=== PATIENT | female | born 1955 | race Caucasian/White ===

== ENCOUNTER 2018-03-11 13:18 | Emergency (ER) | payer MEDICAID, SELFPAY ==
[2018-03-11 13:22] VITALS: BP 142/80; PULSE 91; RESP 16; TEMP 36.7; O2SAT 97
--- NOTE | 2018-03-11 13:24 | ED.GENADUL_ITS ---
Discharge Plan Disposition Patient Disposition: HOME Condition: Stable Discharge Details Chief Complaint: DentalOral Clinical Impression: Odontalgia, Dental caries Primary Care Provider: Rebecca Suresh ED Provider: Josephine Glover Home Meds and New Rx's Prescriptions: New penicillin V potassium 500 mg tablet 500 mg PO QID 7 Days Qty: 28 RF: 0 Continue aspirin 81 mg Tablet,Chewable 81 mg PO DAILY RF: 0 Discharge Instructions Instructions: Dental Caries (ED), Toothache (ED) Additional Instructions: Alternate Tylenol and Motrin as needed and directed for pain. Take the antibiotics until finished. Call your dentist on Tuesday to schedule follow-up appointment for reevaluation. Return immediately to the emergency department any worsening or new concerning symptoms. Discharge Data Discharge Date/Time-TO BE ENTERED AT DEPARTURE: 03/11/18 13:58 Discharge Physician: Josephine Glover Medical Decision Making 62-year-old female with right upper jaw pain and dental pain with right-sided facial swelling since last night. Some improvement in facial swelling this morning. BP mildly hypertensive, afebrile. Pt appears nontoxic. Poor dentition, dental caries and multiple missing teeth throughout. Right upper jaw tooth slightly loose with mild edema, erythema and tenderness to palpation. Noted. No trismus , submandibular swelling or evidence of Kristian's angina. No lymphadenopathy. Normal EOMI. No periorbital edema, erythema or signs of cellulitis. We will give a prescription for Pen V K. Pt was offered a dose of antibiotics here but declines. She is instructed to alternate Tylenol and Motrin. She is instructed to call her dentist Dr. Pierre on Tuesday for a follow up appointment. Instructed to return here with any worsening symptoms or fever. HPI General Mode of arrival: ambulatory . Date/Time Provider Initiated Documentation: 03/11/18 13:21 . Limitations to Documentation: no limitations . Information obtained by: patient . HPI Narrative: Patient is a 62-year-old female who presents with right upper tooth pain and right-sided facial swelling since last night. She denies any known fever. She took ibuprofen last night for pain with some relief. She states her right-sided facial swelling is slightly better this morning. She denies any known fever. She is not taking any medication for pain this morning. Denies any recent antibiotics or antibiotic allergies. Related Data Home Medications Medication Instructions Recorded Confirmed aspirin 81 mg PO DAILY 03/11/18 03/11/18 penicillin V potassium 500 mg PO QID 7 Days #28 tab 03/11/18 Previous Rx's Medication Instructions Recorded penicillin V potassium 500 mg PO QID 7 Days #28 tab 03/11/18 Allergies Allergy/AdvReac Type Severity Reaction Status Date / Time No Known Allergies Allergy Unverified 03/11/18 13:25 Review of Systems Review of Systems All systems reviewed & are unremarkable except as noted in HPI and below Constitutional Reports as per HPI, Denies chills and Denies fever(s) Eyes Denies blurry vision ENT Reports dental pain, Denies dizziness, Denies sore throat and Denies throat swelling Cardiovascular Denies chest pain and Denies dyspnea Respiratory Denies dyspnea Gastrointestinal Denies abdominal pain, Denies diarrhea and Denies vomiting Genitourinary Denies hematuria and Denies dysuria Musculoskeletal Denies back pain and Denies numbness Integumentary/Breasts Denies lesions and Denies rash Neurologic Denies dizziness and Denies numbness Allergic/Immunologic Denies throat swelling [facility] Social History Smoking/Tobacco Use Status: Current every day Social History Smoking/Tobacco Use Status: Current every day Exam Const General: cooperative, healthy appearing and no acute distress HENMT Head: normal to inspection Ears: TM's normal bilaterally General nose exam: external nose normal Mouth: oral mucosae normal Teeth and gingiva: poor dentition and other (Mild edema, erythema and tenderness palpation of teeth on upper jaw. Multiple missing teeth throughout. Tooth on right upper jaw most tender to palpation appears loose. No obvious abscess noted.) Throat: posterior oropharynx normal Eyes General: appearance normal, both eyes and all related structures EOM: EOM intact bilaterally Neck Neck: normal visual inspection, supple and No submandibular swelling Lymphatic: no lymphadenopathy noted Resp Effort & Inspection: normal respiratory effort and able to speak in complete sentences Cardio Rate: regular rate Skin General skin exam: no rashes or lesions noted Neuro General: alert, awake and oriented x3 Motor: muscle tone normal throughout Extrem General: normal to inspection and full ROM Psych Appearance: grossly normal Affect: normal affect
== END 2018-03-11 13:58 | disposition home or self-care (01) ==
LOC: ER 14:00
PROVIDERS: Emergency Provider Physician Assistant; PCP Nurse Practitioner Family
DX: K02.9 Dental caries, unspecified (principal); K08.89 Other specified disorders of teeth and supporting structures
CPT/HCPCS: 99283

== ENCOUNTER 2019-04-17 01:30 | Outpatient (CLI) | payer BC, SELFPAY ==
--- NOTE | 2019-04-17 14:38 | DI.MAMMO_ITS ---
EXAM: MG MAMMO SCREENING CLINICAL HISTORY: [facility], LATER [facility] Z00.00, SCREENING. TECHNIQUE: Bilateral full field digital CC and MLO mammographic images were obtained with 3D tomosyn thesis and utilizing computer aided detection (CAD). COMPARISON: Available for comparison. FINDINGS: Masses/Architectural Distortion: None seen. Microcalcifications: No suspicious pleomorphic-type are seen. Skin Thickening/Nipple Retraction: None. IMPRESSION: 1. No significant interval change with no specific features of malignancy noted. 2. Unless there is more urgent need, screening mammography is recommended, as per [place] [employer] guidelines. ACR BI-RAD Category- 1 Negative Breast Density - Category B - Scattered areas of fibroglandular density A negative radiographic report should not delay biopsy if a dominant or clinically suspicious mass is present. Up to ten percent of cancers are not identified on mammography. A negative report may reinforce clinical impression. Adenosis and dense breasts may obscure an underlying neoplasm. False positive reports average 6 to 10%. Patient will receive a letter notifying them of these results.
== END 2019-04-17 01:50 ==
PROVIDERS: PCP Nurse Practitioner Family; Visit Provider Nurse Practitioner Family
DX: Z00.00 Encounter for general adult medical examination without abnormal findings (principal); Z12.31 Encounter for screening mammogram for malignant neoplasm of breast
CPT/HCPCS: 77063; 77067

== ENCOUNTER 2019-04-17 12:28 | Outpatient (REF) | payer BC, SELFPAY ==
--- NOTE | 2019-04-17 11:00 | PAPFT_PTH ---
PATIENT: Rebecca Bourne LOC: NCN U#:[id number] AGE/SX: 63/F ROOM: RE04/17/[address]: Zayra Maldonado : 1955 BED: DIS: 04/17/2019 SPEC #: [id number] RECD: 04/18/19 12:48 STATUS: MEGHA REGisela #: [id number] FREDERICK: 04/17/19 11:[address]: Zayra Maldonado DEPT: [facility] Cytology RECD BY: Samantha Knott Tissues: 1 - CX/ENDOCX FOR PAP SMEARS Procedures: PAP THIN PREP/UVM Screening HPV DNA PROBE Comments: [id number]
== END 2019-04-17 12:48 ==
LOC: NCHCN 12:28
PROVIDERS: PCP Nurse Practitioner Family; Visit Provider Nurse Practitioner Family
DX: Z12.4 Encounter for screening for malignant neoplasm of cervix (principal); Z01.419 Encounter for gynecological examination (general) (routine) without abnormal findings
CPT/HCPCS: 88142; 87624

== ENCOUNTER 2019-04-25 08:43 | Outpatient (REF) | payer BC, MEDICAID, SELFPAY ==
[2019-04-25 20:43] LABS: BUN 18 mg/dL (7-18); CREATININE 0.63 mg/dL (0.55-1.02); Calcium 9.2 mg/dL (8.5-10.1); Calculated LDL 123 mg/dL; Chloride 105 mmol/L (98-107); Cholesterol 193 mg/dL (<200); Glucose 91 mg/dL (74-106); HDL Cholesterol 62 mg/dL (40-60); Potassium 4.3 mmol/L (3.5-5.1); Sodium 141 mmol/L (136-145); Triglyceride 40 mg/dL (<150)
== END 2019-04-25 09:03 ==
LOC: NCHCN 08:43
PROVIDERS: PCP Nurse Practitioner Family; Visit Provider Nurse Practitioner Family
DX: Z00.00 Encounter for general adult medical examination without abnormal findings (principal); Z13.1 Encounter for screening for diabetes mellitus; Z13.220 Encounter for screening for lipoid disorders; Z13.29 Encounter for screening for other suspected endocrine disorder
CPT/HCPCS: 80048; 80061; 84443

== ENCOUNTER 2019-05-07 01:39 | Outpatient (CLI) | payer BC, SELFPAY ==
--- NOTE | 2019-05-07 14:10 | DI.CTLCSR_ITS ---
EXAM: CT CHEST LUNG CANCER SCREEN CLINICAL HISTORY: SCREENING FOR CANCER Z12.9, 44 PK/YR, CURRENT SMOKER, ASYMPTOMATIC. TECHNIQUE: Imaging protocol: Axial computed tomography images were obtained and coronal and sagittal reformatted images were created and reviewed. COMPARISON: No exams were available for comparison FINDINGS: Tracheobronchial tree: Patent where visualized. Mediastinum and Tea: No dominant adenopathy or fluid collection. Pulmonary parenchyma: There is a small ground-glass opacity in the right upper lobe. No pulmonary no dules are present. Atelectasis or scarring is seen in the lung bases bilaterally. No architectural distortion. Pleura: No effusion or pneumothorax. Heart: The heart is not dilated. Mild coronary artery calcification is present. No pericardial effus ion is present. Aorta: Atherosclerosis. No aneurysmal dilatation. Upper abdomen: Cholelithiasis. Lymph nodes: Within normal limits. Bones:Degenerative changes are present. IMPRESSION: 1. No pulmonary nodules. 2. Small ground-glass opacity in the right upper lobe. This is nonspecific. This may represent a sm all infiltrate or atelectasis. 3. Cholelithiasis. 4. Lung RADS Cat 1 - Negative: No nodules and definitely benign nodules. DATA REPOSITORY: All CT scans at this facility are submitted to the National Radiology Data Registry (NRDR) Dose Index Registry (DIR) with the [employer] (ACR). RADIATION OPTIMIZATION: All CT scans at this facility use at least one of these dose optimization te chniques: automated exposure control; mA and/or kV adjustment per patient size (includes targeted exa ms where dose is matched to clinical indication); or iterative reconstruction.
== END 2019-05-07 01:59 ==
PROVIDERS: PCP Nurse Practitioner Family; Visit Provider Nurse Practitioner Family
DX: Z12.2 Encounter for screening for malignant neoplasm of respiratory organs (principal); F17.200 Nicotine dependence, unspecified, uncomplicated; J98.4 Other disorders of lung
CPT/HCPCS: G0297

== ENCOUNTER 2020-01-31 08:46 | Outpatient (REF) | payer MEDICAID, SELFPAY ==
--- NOTE | 2020-01-31 09:00 | ENDO_PTH ---
PATIENT: Rebecca Bourne LOC: N U#:[id number] AGE/SX: 64/F ROOM: RE01/31/[address]: Shelbie Toney : 1955 BED: DIS: 01/31/2020 SPEC #: [id number] RECD: 01/31/20 11:33 STATUS: MEGHA REQ #: [id number] FREDERICK: 01/31/20 09:[address]: Shelbie Toney DEPT: Surgical Specimen RECD BY: Samantha Knott ENTERED: 01/31/20 11:33 SP TYPE: Endo OTHR DR: Zayra Maldonado Tissues: 1 - ENDOCERVICAL BX/CURRETTE Procedures: GROSS AND MICRO LEVEL 4 Comments: [id number]
== END 2020-01-31 09:06 ==
LOC: LBN 08:46
PROVIDERS: PCP Nurse Practitioner Family; Visit Provider Obstetrics & Gynecology Gynecology
DX: N84.1 Polyp of cervix uteri (principal)
CPT/HCPCS: 88305

== ENCOUNTER 2020-06-20 18:24 | Outpatient (REF) | payer MEDICAID, BC, SELFPAY ==
[2020-06-20 18:30] LABS: Calculated LDL 109 mg/dL (<100); Cholesterol 189 mg/dL (<200); HDL Cholesterol 72 mg/dL (40-60); Triglyceride 41 mg/dL (<150)
[2020-06-22 09:34] LABS: Glucose 91 mg/dL (74-106)
== END 2020-06-20 18:25 | disposition home or self-care (01) ==
LOC: NCHCN 18:24
PROVIDERS: PCP Nurse Practitioner Family; Visit Provider Nurse Practitioner Family
DX: Z13.1 Encounter for screening for diabetes mellitus (principal); Z13.220 Encounter for screening for lipoid disorders
CPT/HCPCS: 80061; 82947

== ENCOUNTER 2020-07-25 03:57 | Outpatient (CLI) | payer MEDICAID, SELFPAY ==
--- NOTE | 2020-07-25 08:45 | DI.CTLCSR_ITS ---
EXAM: CT CHEST LUNG CANCER SCREEN CLINICAL HISTORY: SCREENING FOR LUNG CA,CURRENT SMOKER, Z12.9,ANNUAL EXAM TECHNIQUE: Imaging Protocol: Axial computed tomography images with coronal and sagittal reformatted images were created and reviewed COMPARISON: CT CT CHEST LUNG CANCER SCREEN from 05/07/2019 FINDINGS: Tracheobronchial tree: Patent where visualized. Mediastinum and Tea: No dominant adenopathy or fluid collection. Pulmonary parenchyma: No consolidation or dominant measurable mass. Mild centrilobular emphysema. M ild apical pleural scarring. Linear atelectasis lung bases. Lung Nodules: 15 millimeter ground-glass opacity right upper lobe, unchanged. Pleura: No effusion or pneumothorax. Heart: The heart is not dilated. Mild coronary artery calcifications are seen. Aorta: Thoracic aorta non-dilated.Mild atherosclerotic changes. Upper abdomen: Gallstones. Bones: Mild degenerative changes in the spine. Soft Tissues: Unremarkable. IMPRESSION: Stable 15 millimeter right upper lobe ground-glass opacity. Lung RADS Cat 2 - Benign Appearance / Behavior: Nodules with a very low likelihood of becoming a clin ically active cancer due to size or lack of growth Lung-RADS 1.0 CATEGORIES: Category 0 - Prior chest CT exam(s) being located for comparison. Category 1 - Annual screening in 12 months. No nodules or definitely benign nodules. Category 2 - Annual screening in 12 months. Benign appearance. Nodules with low likelihood of becomin g active cancer. Category 3 - 6-month follow-up. Probably benign. Short-term follow-up suggested. Nodules with low lik elihood of becoming active cancer. Category 4A - 3-month follow-up and CT/PET if >8 mm in size. Suspicious finding. Findings which requi re additional testing. Category 4B - Findings which require additional testing and tissue sampling. Modifier S- Potentially clinically significant findings (non lung cancer) RADIATION DOSE DELIVERED: 78.61mGy.cm Total DLP 1.84mGy CTDIvol DATA REPOSITORY: All CT scans at this facility are submitted to the National Radiology Data Registry (NRDR) Dose Index Registry (DIR) with the [employer] (ACR). RADIATION OPTIMIZATION: All CT scans at this facility use at least one of these dose optimization te chniques: automated exposure control; mA and/or kV adjustment per patient size (includes targeted exa ms where dose is matched to clinical indication); or iterative reconstruction.
== END 2020-07-25 04:17 ==
PROVIDERS: PCP Nurse Practitioner Family; Visit Provider Nurse Practitioner Family
DX: Z12.2 Encounter for screening for malignant neoplasm of respiratory organs (principal); F17.210 Nicotine dependence, cigarettes, uncomplicated; J43.2 Centrilobular emphysema; R91.8 Other nonspecific abnormal finding of lung field
CPT/HCPCS: 71271

== ENCOUNTER 2021-01-12 01:51 | Outpatient (CLI) | payer BC, MEDICAID, SELFPAY ==
[2021-01-12 09:29] LABS: Abs Immature Grans 0.02 10^3/uL (0.0-0.06); Absolute Basophil Count 0.04 10^3/uL (0.0-0.2); Absolute Eosinophil Count 0.26 10^3/uL (0.0-0.7); Absolute Lymphocyte Count 1.63 10^3/uL (1.2-3.4); Absolute Monocyte Count 0.51 10^3/uL (0.1-0.8); Absolute Neutrophil Count 6.06 10^3/uL (1.2-6.7); Basophils % 0.5; Eosinophils % 3.1; HCT 39.1 % (36.0-46.0); HGB 13.1 g/dL (11.2-15.7); Immature Grans % 0.2; Lymphocytes % 19.1; MCHC 33.5 % (32.0-36.0); MCV 89.5 fL (80-95); MPV 8.1 fL (8.0-11.0); Neutrophils % 71.1; Nucleated RBC 0 %; Platelet Count 344 10^3/uL (130-400); RBC 4.37 10^6/uL (3.93-5.22); RDW 14.6 % (11.7-14.6); RDW-SD 48.4 fL; WBC 8.52 10^3/uL (4.4-10.8)
[2021-01-12 10:09] LABS: ALT 28 U/L (14-59); AST 15 U/L (15-37); Alkaline Phosphatase 54 U/L (46-116); Anion Gap 8.2 mmol/L (3-11); BUN 15 mg/dL (7-18); Bilirubin, Total 0.6 mg/dL (0.2-1.0); CO2 28.8 mmol/L (21.0-32.0); CREATININE 0.6 mg/dL (0.55-1.02); Calcium 9.6 mg/dL (8.5-10.1); Chloride 105 mmol/L (98-107); Glucose 89 mg/dL (74-106); Potassium 4.3 mmol/L (3.5-5.1); Sodium 142 mmol/L (136-145); Total Protein 6.8 g/dL (6.4-8.2)
[2021-01-12 13:09] LABS: Source Nasal/Nares
[2021-01-13 08:07] LABS: COVID-19 PCR Negative (Negative)
== END 2021-01-12 01:52 | disposition home or self-care (01) ==
LOC: LBO 01:52
PROVIDERS: Obstetrics & Gynecology; PCP Nurse Practitioner Family; Visit Provider Obstetrics & Gynecology Gynecology
DX: Z11.52 Encounter for screening for COVID-19 (principal); Z01.818 Encounter for other preprocedural examination
CPT/HCPCS: 36415; 80053; 86850; 86900; 86901; 87635; 85025

== ENCOUNTER 2021-01-14 12:08 | Observation (INO) | payer BC, MEDICAID, SELFPAY ==
[2021-01-14] VITALS (12 sets, daily range): BP systolic 85–123; BP diastolic 44–74; PULSE 66–79; RESP 11–18; TEMP 36.1–37.4; O2SAT 94–99; BMI 28.8
[2021-01-14] MEDS: Lactated Ringers 1,000 ML 125 ML IV ×3 (07:02→18:39)
--- NOTE | 2021-01-14 07:14 | W.ANESPRE ---
General Info Date of Service Date Performed: 01/14/21 Height: 5 ft Weight: 66.8 kg Body Mass Index (BMI): 28.8 Surgical Procedure: Operation Date: 01/14/21 07:40 Proposed Procedures Side Surgeon p Hysterectomy Vaginal Laparoscopic Assist,bilateral salpingoopherectomy,uterosacral ligament fixation, cysto Shelbie Toney MD s Anterior/Posterior Repair Shelbie Toney MD Meds Allergies and Home Medications Allergies Allergy/AdvReac Type Severity Reaction Status Date / Time No Known Allergies Allergy Unverified 01/12/21 11:49 Home Medication Medication Instructions Recorded aspirin 81 mg PO DAILY 03/11/18 vitamin d with calcium 400 mg PO BID 01/05/21 Current Visit Medications: Current Medications Generic Name Dose Route Start Last Admin Trade Name Freq PRN Reason Stop Dose Admin Ringer's Solution 1,000 mls @ 125 mls/hr 01/14/21 06:00 01/14/21 07:02 IV 02/01/21 23:59 125 mls/hr INFUSION STANISLAV Administration Cefazolin Sodium/Dextrose 2 gm in 50 mls @ 100 mls/hr 01/14/21 06:00 Ancef Duplex IVPB 01/14/21 23:59 PREOP STANISLAV IV Miscellaneous Supplies 1 each 01/14/21 06:00 Iv Access IV 02/01/21 23:59 DIRECTED STANISLAV Sodium Chloride 0 ml 01/14/21 06:00 Normal Saline Flush 10 Ml Syr IV 02/01/21 23:59 PRN PRN Sodium Chloride 0 ml 01/14/21 06:00 Normal Saline 10 Ml Vial IJ 02/01/21 23:59 DIRECTED PRN Sterile Water 0 ml 01/14/21 06:00 Water,Injection,Sterile 10 Ml Vial IJ 02/01/21 23:59 DIRECTED PRN PFSH Active Problems Active Problems: Problem Status Onset Code Preop examination Z01.818 Pessary maintenance Z46.89 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 No atypia. We will continue to observe. Lesion of hard palate Raquel-menopausal Polyp at cervical os 01/2020. Fibroepithelial stromal polyp. Prolapse, uterovaginal noted 2018. 05/2019. 76mm short stemmed Gelhorn. Pt contemplating surgery. Tinea corporis noted on exam 04/18/19 Tobacco use 44yr pack hx. precontempative stage of tobacco cessation. Vaginal pessary present 05/2019. 76mm short stemmed gelhorn Vaginitis 05/2019. + BV after pessary placement. Tobacco Smoking/Tobacco Use Status: Current every day Tobacco Type: cigarettes Alcohol Alcohol Intake: current Alcohol intake frequency: a few times a week Details: Pt denies that ETOH has ever been a problem Substance Use Substance use: Occasionally Substance use type: marijuana Details: Pt reports not having used cannibas in over a week. Prental History History 3 Para Hx # Term Pregnancies 3 Multiple births Hx # Pregnancies Ectopic pregnancies AB induced Hx Number of Living Children AB spontaneous Vital Signs and Lab Results Vital Signs Most Recent Vital Signs in EMR: Most Recent Vital Signs Temp Pulse Resp BP Pulse Ox 36.5 C 79 16 123/74 97 01/14/21 06:45 01/14/21 06:45 01/14/21 06:45 01/14/21 06:45 01/14/21 06:45 Lab Results Blood Type / Crossmatch: Patient ABO/Rh A Positive 01/12/21 09:10 01/12/21 Antibody Screen NEGATIVE 01/12/21 09:10 01/12/21 Complete Blood Count: White Blood Count 8.52 10^3/uL (4.4-10.8) 01/12/21 09:10 01/12/21 Red Blood Count 4.37 10^6/uL (3.93-5.22) 01/12/21 09:10 01/12/21 Hemoglobin 13.1 g/dL (11.2-15.7) 01/12/21 09:10 01/12/21 Hematocrit 39.1 % (36.0-46.0) 01/12/21 09:10 01/12/21 Platelet Count 344 10^3/uL (130-400) 01/12/21 09:10 01/12/21 Complete Metabolic Panel: Sodium Level 142 mmol/L (136-145) 01/12/21 09:10 01/12/21 Potassium Level 4.3 mmol/L (3.5-5.1) 01/12/21 09:10 01/12/21 Chloride Level 105 mmol/L (98-107) 01/12/21 09:10 01/12/21 Carbon Dioxide Level 28.8 mmol/L (21.0-32.0) 01/12/21 09:10 01/12/21 Blood Urea Nitrogen 15 mg/dL (7-18) 01/12/21 09:10 01/12/21 Creatinine 0.6 mg/dL (0.55-1.02) 01/12/21 09:10 01/12/21 Estimated GFR/1.73 m2 >= 60.00 (mL/min/1.73m2) 01/12/21 09:10 01/12/21 Calcium Level 9.6 mg/dL (8.5-10.1) 01/12/21 09:10 01/12/21 Albumin 4.0 g/dL (3.4-5.0) 01/12/21 09:10 01/12/21 Glucose Level 89 mg/dL (74-106) 01/12/21 09:10 01/12/21 Liver Function Panel: Alanine Aminotransferase (ALT/SGPT) 28 U/L (14-59) 01/12/21 09:10 01/12/21 Aspartate Amino Transf (AST/SGOT) 15 U/L (15-37) 01/12/21 09:10 01/12/21 Coagulation Panel: No Data to Display Cardiac Panel: No Data to Display Arterial Blood Gas: No Data to Display Venous Blood Gas: No Data to Display Pancreas Panel: No Data to Display Thyroid Panel: No Data to Display Infectious Disease: Coronavirus (COVID-19)(PCR) Negative (Negative) 01/12/21 09:24 01/12/21 Coronavirus 2019 Source Nasal/Nares 01/12/21 09:24 01/12/21 Blood Cultures: No Data to Display Toxicology Panel: No Data to Display Anesthesia Assessment and Plan Anesthesia History Personal History: No History of General Anesthesia Family History: No Family History of Anesthesia Complications Exercise Tolerance Exercise Tolerance: Metabolic Equivalents>4 Pertinent Negatives Pertinent Negatives: No Symptoms of GERD, No Major Cardiovascular Symptoms or Complaints, No Major Pulmonary Symptoms or Complaints and No History of CVA/TIA Cardiac & Pulmonary Exam Cardiac Exam: Normal S1/S2 Heart Sounds Pulmonary Exam: Clear Bilateral Breath Sounds Airway Exam Known Difficult Airway: No Mallampati Class: 2 Mouth Opening: Normal (> 3cm) Thyromental Distance: Greater than 3 cm Neck Range of Motion: Full ROM Neck Circumference: Normal Teeth Condition: Removable Dentures/Plates Upper ASA Classification ASA Score: ASA 2 Emergency Case?: No NPO Status NPO Status: NPO Clears >2 hours, Solids >8 hours Anesthesia Plan Resuscitation Status: Full Code Anesthesia Technique: General Anesthesia Airway Planned: Endotracheal Tube Pain Management: Intrathecal Analgesia Monitors Used: Standard Monitors and SedLine
[2021-01-14] MEDS: ceFAZolin 2 GM/50 ML BAG IVPB (09:05)
--- NOTE | 2021-01-14 10:40 | UTER_PTH ---
PATIENT: Rebecca Bourne LOC: U#:[id number] AGE/SX: 65/F ROOM: RE01/14/[address]: Shelbie Toney : 1955 BED: A DIS: 01/15/2021 SPEC #: [id number] RECD: 01/14/21 12:54 STATUS: MEGHA REQ #: [id number] FREDERICK: 01/14/21 10:[address]: Shelbie Toney DEPT: Surgical Specimen RECD BY: Samantha Knott ENTERED: 01/14/21 12:55 SP TYPE: UTER OTHR DR: Zayra Maldonado Tissues: 1 - UTERUS W OR W/O OVARIES(NOT TUMOR/PROLAPSE) Procedures: GROSS AND MICRO LEVEL 5 Comments: [id number]
[2021-01-14] MEDS: Bupivacaine 0.25% Pres-Free 30 ML VIAL (11:29)
--- NOTE | 2021-01-14 18:17 | NUR.NOTE ---
Nursing Note: pt pad has been changed two times since 1500, minimal blood loss.
[2021-01-14] MEDS: Ketorolac 30 MG/ML VIAL IVP (18:20)
[2021-01-14] MEDS: Docusate Sodium 100 MG CAP PO (19:58)
[2021-01-15] MEDS: Ketorolac 30 MG/ML VIAL IVP ×2 (00:09→06:27)
[2021-01-15] MEDS: Lactated Ringers 1,000 ML 125 ML IV (02:14)
--- NOTE | 2021-01-15 07:44 | W.PM.DS.N ---
Date of service: 01/15/21 Time of Service: 07:45 DS: Diagnosis Discharge Diagnosis (1) History of laparoscopic-assisted vaginal hysterectomy: Status: Acute (2) Hx of bilateral salpingo-oophorectomy: Status: Acute Discharge Plan Disposition Patient Disposition: HOME Condition: Improving Discharge Details Reason For Visit: Laparoscopic - assisted vaginal hysterectomy Admit Date/Time: 01/14/21 12:08 Admit Provider: Shelbie Toney Attending Provider: Shelbie Toney Primary Care Provider: Zayra Maldonado [facility] Hospital Course: Pt was admitted the morning of surgery and underwent the above stated procedure. She was discharged to home on POD1 tolerating regular diet and voiding spontaneously. Pain was controlled with IV NSAIDs. I recommended that she have a Rx for Percocet 5/325mg one tablet every 6hrs as needed for pain 5 tablets given. She will use over the counter NSAIDs and Acetaminophen for mild to moderate pain. Home Meds and New Rx's Prescriptions: No Action vitamin d with calcium 400 mg PO BID RF: 0 aspirin 81 mg Tablet,Chewable 81 mg PO DAILY RF: 0 Discharge Instructions Additional Instructions: Keep your appointment with Dr. Toney for 2 weeks. Quit smoking!!!!! Stand Alone Forms: DSU Post Gynecology Surgery Activity:: Activity as Tolerated Equipment/Supplies:: No Equipment Needed Diet:: As Tolerated Discharge Orders Discharge Orders: Discharge Order (Routine); Ordered 01/15/21 Ordered By: Shelbie Toney DS: Summary Time Spent with Patient providing and/or coordinating discharge services: Less than 30 minutes Status at Discharge Functional status at discharge: independent ambulation Overall status at discharge: patient is progressing back to baseline Mental Status: mental status grossly normal Speech and Movement: speech and movement normal Mood: congruent mood Affect: normal affect Exam Narrative Exam Narrative: Pt had a history of uterovaginal prolapse treated with Gelhorn pessary. Pt requested definitive treatment in the form of surgery. Findings at the time of surgery: small fibroid uterus, nl adnexa. Final pathology pending. Const General: no acute distress Nutritional Appearance: average body habitus Orientation: alert, awake and oriented x3 Neck Neck: normal visual inspection Resp Effort & Inspection: normal respiratory effort Auscultation: clear to auscultation bilaterally Cardio Rate: regular rate Rhythm: regular rhythm GI Inspection: abdominal wall ecchymosis (inferior to umbilical port site incision) and incision (clean dry and intact. skin glue in place) General: deferred Skin General skin exam: no rashes or lesions noted Extrem General: normal to inspection and full ROM Psych Appearance: grossly normal Mental Status: mental status grossly normal Speech and Movement: speech and movement normal Mood: congruent mood Affect: normal affect Attitude: cooperative Thought Process: normal Thought Content: normal Insight: insight good Judgment: judgment good DS: Data Vitals/I&O Vitals and I&O: Vital Signs Temperature 98.1 F 01/14/21 23:30 Temperature Source Tympanic 01/14/21 23:30 Pulse 77 01/14/21 23:30 Pulse Rhythm Regular 01/14/21 20:00 Respiratory Rate 17 01/14/21 23:30 Respiratory Effort 01/14/21 20:00 Respiratory Depth Normal 01/14/21 20:00 Respiratory Pattern Normal 01/14/21 20:00 Blood Pressure 108/60 01/14/21 23:30 Pulse Oximetry 94 01/14/21 23:30 Respiratory End-tidal CO2 38 01/14/21 13:35 Oxygen Delivery Method Room Air 01/14/21 23:30 Oxygen Flow Rate 0 01/14/21 23:30 Pain Level 0 01/15/21 01:09 Intake & Output 01/14/21 01/14/21 01/15/21 11:59 23:59 11:59 Intake Total 50 / 1936.732 4191.667 / 1691.667 947.917 / 947.917 Output Total 50 / 900 850 / 900 Balance 0 / 791.667 791.667 / 791.667 947.917 / 947.917 Weight 147 lb 4.301 oz Intake: IV 50 / 4580.449 0321.667 / 1691.667 947.917 / 947.917 Output: Urine 50 / 900 850 / 900 Other: Urine Color Yellow Brown Urine Appearance Clear Cloudy Urine Odor None Emesis Description None Voiding Methods Toilet Data Completed and Pending Labs on day of discharge: Labs from last 24 hours 01/15/21 05:35 WBC Pending RBC Pending Hgb Pending Hct Pending MCV Pending MCH Pending MCHC Pending RDW Pending Plt Count Pending MPV Pending [facility] Medical History (Updated 01/15/21 @ 07:49 by Shelbie Toney MD) Abnormal finding on lung imaging Lesion of hard palate Raquel-menopausal Prolapse, uterovaginal noted 05/2019. 76mm short stemmed Gelhorn. 01/14/21 LAVH, BSO, Tinea corporis noted on exam 04/18/19 Tobacco use 44yr pack hx. precontempative stage of tobacco cessation. Vaginitis 05/2019. + BV after pessary placement. Surgical History (Updated 01/15/21 @ 07:47 by Shelbie Toney MD) Hx of bilateral salpingo-oophorectomy Social History (Updated 04/28/19 @ 21:32 by Shelbie Toney MD) Smoking/Tobacco Use Status: Current every day Tobacco Type: cigarettes Smoking risk assessment performed?: Yes Alcohol Intake: current Alcohol Intake frequency: a few times a week Details: Pt denies that ETOH has ever been a problem Drug use: Never Substance use type: marijuana Details: Pt reports not having used cannibas in over a week. Household members: spouse and other Details: [id number]. 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 Sexually active: No Do you feel safe at home: Yes Do you feel safe in your relationship?: Yes Additional Social history: Son lives next door. One daughter lives in [place] and another in [place]. History History 3 Para Hx # Term Pregnancies 3 Multiple births Hx # Pregnancies Ectopic pregnancies AB induced Hx Number of Living Children AB spontaneous
[2021-01-15 07:52] LABS: HCT 32.2 % (36.0-46.0); HGB 10.5 g/dL (11.2-15.7); MCH 29.7 pg (27.0-33.0); MCHC 32.6 % (32.0-36.0); MPV 8.7 fL (8.0-11.0); Platelet Count 293 10^3/uL (130-400); RBC 3.54 10^6/uL (3.93-5.22); RDW 14.4 % (11.7-14.6); WBC 13.02 10^3/uL (4.4-10.8)
[2021-01-15] MEDS: Docusate Sodium 100 MG CAP PO (08:16)
--- NOTE | 2021-01-15 08:16 | W.PM.OP ---
Date of service: 01/15/21 Time of Service: 08:17 Operative Note Operative Note DATE OF PROCEDURE: 01/14/21 PRE-OP DIAGNOSIS: uterovaginal prolapse. cystocele. POST-OP DIAGNOSIS: same PROCEDURE: laparoscopic assisted vaginal hysterectomy with bilateral salpingoophorectomy Silvestre culdoplasty, anterior colporraphy, bladder cystoscopy SURGEON: Shelbie Toney ASSISTING SURGEON: Marianna Naik ANESTHESIA TYPE: General LMA/ETT and Spinal Refer to Anesthesia Record ESTIMATED BLOOD LOSS: 20 PATHOLOGY: other (uterus, bilateral ovaries and fallopian tubes) COMPLICATIONS: None Patient was transported to: PACU Patient's condition: stable Indications: Pt with a stage 3 cystocele, stage 2 uterine prolape who decided after pessary use to proceed with definitive therapy. Findings: small uterus with several small serosal fibroids. Nl fallopian tubes and ovaries. Stage three cystocele and stage 2 uterine prolapse. efflux of blue dye from bilateral urethral orifices. Procedure Description: Patient was taken to the operating room where she received spinal anesthesia followed by general endotracheal anesthesia. She received 2 g of Ancef upon arrival in the OR. She was then placed in the dorsal lithotomy position in [facility] stirrups with SCDs in place. After being prepped and draped in the usual sterile fashion a surgical timeout was performed. Olvera catheter was placed to gravity drainage. A bivalve speculum was placed in the vagina and the anterior lip of the cervix was grasped with a single-tooth tenaculum. A Hulka uterine manipulator was successfully inserted into the uterine cavity and the device left in place. Attention was then turned to the patient's abdomen. The umbilical fold was infiltrated with quarter percent Marcaine without epinephrine. A scalpel was then used to make a 12mm vertical skin incision in the umbilical fold. Two penetrating towel clips were used to tent up the skin and through the periumbilical incision and a Veres needle was introduced into the abdomen with carbon dioxide as the distention medium. Intra-abdominal placement was confirmed by a drop in the intra-abdominal pressure. Once a pneumoperitoneum was established a 12 mm Visiport was placed under direct visualization. Patient was then placed in Trendelenburg position. Two sites approximately 6 cm diagonally from the umbilical incision the skin were infiltrated with 1cc of 0.25% Marcaine without epinephrine, incised with a scalpel and two 5 mm lower ports were placed under direct visualization. After careful inspection of the pelvis a LigaSure electrocautery device was used to clamp, cauterize and transect the suspensory ligament of the left ovary. The left broad ligament was clamped, cauterized and transected to access the left round ligament which was then clamped, cauterized and transected to the level of the lower uterine segment. Uterine vessels were clamped and cauterized. The vesico-uterine peritoneum was incised and the the from the lower uterine segment and mobilized off of the body of the cervix. The pedicles of the suspensory, round and broad ligaments were inspected and noted to be hemostatic. On the contralateral side the right ovarian suspensory ligament, the round ligament and right broad ligament were sequentially clamped, cauterized and transected using the Ligasure device to the level of the insertion of the uterine vessels. The remaining the vesicouterine peritoneum was incised across the lower uterine segment and the bladder flap created using the Ligasure device and gentle counter traction. All pedicles were inspected and noted to be hemostatic. Decision was made to proceed with the vaginal portion of the case. Laparoscopic instruments were removed from the ports , the pneumoperitoneum was reduced, and the was abdomen covered with sterile drape. A weighted vaginal speculum was placed in the vagina and the anterior and posterior lips of the cervix were grasped with Shanon clamps and the body of the cervix infiltrated with a dilute solution of 1% Lidocaine with epinephrine. A circumferential incision of the cervical epithelium was made with a Bovie electrocautery. The posterior cul-de-sac was entered sharply and through the this incision a long billed weighted speculum was placed. The left and right uterosacral ligament complexes were identified clamped, transected and suture-ligated and the suture held long. The vesicouterine fascia was identified and the anterior cul-de-sac incised and entered sharply. Through this incision a curved right angled retractor was inserted and used to retract the bladder away from the operative field. The remaining right and left broad ligament attatchments were sequentially clamped, cauterized, and transected and the specimen was passed off of the operative field. A 0-Vivryl suture was passed through the lateral aspect of the posterior vaginal cuff and the internal aspect of the left uterosacral/cardinal ligament complex followed by the peritoneal surface of the posterior vaginal cuff. It was passed through the contralateral internal uterosacral/cardinal complex and then the right lateral margin of the posterior vaginal cuff. The suture was then tied in the midline. The vaginal cuff was re-approximated in a horizontal fashion using a locked suture of 0 Vicryl. The anterior colporrhaphy was performed in the following manner: An Allis clamp was placed 1 cm proximal to the urethra along the midline of the anterior vagina and two more Allis clamps on either side of the vaginal cuff. The anterior vaginal wall was injected with Lidocaine with dilute epinephrine. A scalpel was used to make a transverse incision between the two Allis clamps on the vaginal cuff. Metzenbaum scissors were used to dissect the vaginal epithelium off the underlying anterior tissues. A small vertical incision was made with Metzenbaum scissors in the midline of the dissected vaginal epithelium The scissors were advanced with gentle pressure and spread slightly extending the vertical incision to the apex with the Allis clamp proximal to the urethra reached. Further dissection of the vaginal epithelium from the underlying tissues was performed bilaterally until the the vaginal tissue had been dissected off the entirety of the bladder. Plication of the vaginal muscularis and adventitia was then performed using interupted bycfpt-or-qplpt 0-Vicryl sutures. After the plication of the defect has been performed, redundant vaginal mucosa was trimmed. The vaginal trimmed vaginal epithelium was closed with a continuous 2-0 Vicryl in a vertical fashion. Instruments removed from the vagina and attention was again turned to the abdomen where a pneumoperitoneum was reestablished and the pelvis inspected using the laparoscope. The vaginal cuff was intact and was hemostatic as were the round ligament and broad ligament pedicles. The instruments were removed from the port sites, the pneumoperitoneum reduced and the ports removed. The fascia of the periumbilical skin incision was closed with interrupted suture of 0 Vicryl. The skin of all port site incisions were reapproximated with a subcuticular closure of 4-0 Monocryl and and covered with skin glue. A cystoscopy was performed with both ureteral jets patent with a brisk reflux of urine from each. The bladder was inspected and no evidence of sutures were present. Olvera catheter was reinserted to gravity drainage and the patient was placed in the dorsal supine position, awakened, extubated, and transported recovery area in stable condition. All sponge lap needle counts correct x2.
[2021-01-15 08:36] VITALS: BP 113/72; PULSE 71; RESP 16; TEMP 36.9; O2SAT 96
--- NOTE | 2021-01-15 15:52 | W.ANESPOSTOP ---
Postoperative Evaluation Date, Time and Location Date Performed: 01/15/21 Time Performed: 08:30 Patient Location: Med/Surg Vital Signs Most Recent Imported Vital Signs: Most Recent Vital Signs Temp Pulse Resp BP Pulse Ox 36.9 C 71 16 113/72 96 01/15/21 08:36 01/15/21 08:36 01/15/21 08:36 01/15/21 08:36 01/15/21 08:36 Pain Score Most Recent Pain Score: Most Recent Pain Score Pain Level 0 01/15/21 08:36 Assessment Mental Status: Awake (Alert & Oriented to Patient Baseline) Airway and Respiratory Function: Patent airway with normal (patient baseline) respiratory exam Cardiovascular Function: Hemodynamically Stable Hydration Status: Adequately Hydrated Nausea & Vomiting: No Nausea or Vomiting Pain: Pt. Denies Any Pain Peripheral Nerve Block: Patient did not receive a nerve block
== END 2021-01-15 12:00 | disposition home or self-care (01) ==
LOC: MS 13:52
PROVIDERS: Admitting Provider Obstetrics & Gynecology Gynecology; PCP Nurse Practitioner Family; Visit Provider Obstetrics & Gynecology Gynecology
PROC: 0UT9FZZ Resection of Uterus, Via Natural or Artificial Opening With Percutaneous Endoscopic Assistance (ICD-10-PCS; CPT 58552; principal; 2021-01-14 07:30)
PROC: (CPT 57260; 2021-01-14 07:30)
DX: N81.2 Incomplete uterovaginal prolapse (principal); N83.292 Other ovarian cyst, left side; D25.1 Intramural leiomyoma of uterus; N83.291 Other ovarian cyst, right side; D27.1 Benign neoplasm of left ovary; F17.210 Nicotine dependence, cigarettes, uncomplicated
CPT/HCPCS: 58552; 57268; 57240; 36415; 85027; 88307; G0378; J0690; J1100; J1885; J2001; J2250; J2405; J3010

== ENCOUNTER 2021-07-31 08:05 | Day surgery (SDC) | payer BC, MEDICAID, SELFPAY ==
--- NOTE | 2021-07-30 14:15 | PDOC.DSDIS_ITS ---
Discharge Plan Disposition Patient Disposition: HOME Condition: Good Discharge Details Reason For Visit: colon scope Attending Provider: Mary Levy Primary Care Provider: Zayra Maldonado Home Meds and New Rx's Prescriptions: Continued vitamin d with calcium 400 mg PO BID 0RF aspirin 81 mg Tablet,Chewable 81 mg PO DAILY 0RF Discontinued polyethylene glycol 3350 17 gram/dose powder 238 g PO ONCE Qty: 238 0RF Rx Instructions: take per colonoscopy instructions bisacodyl [Dulcolax (bisacodyl)] 5 mg tablet,delayed release (DR/EC) 5 mg PO ONCE Qty: 4 0RF Rx Instructions: take per colonoscopy instructions Discharge Instructions Additional Instructions: [facility] Colonoscopy Post- Op Instructions Instructions for Everyone who is given Anesthesia: For your safety, please do the following for the next twenty-four (24) hours: *Do Not operate a motor vehicle (car, truck, motorcycle, etc.) *Do Not drink alcoholic beverages or use any recreational drugs for the first 24 hours or while taking pain medications. The medications in your body may have a reaction that can be dangerous. *Do Not make any important decisions or sign any important papers. Findings: Normal Follow up: repeat in 5 yrs time- poor prep 1. No lifting over 20 pounds or strenuous activity for the first 24 hours after your procedure. After 24 hours there are no restrictions on your activity but you may feel fatigued for a few days. 2. After you arrive home you may have a light meal and return to your normal diet as you can tolerate it without feeling sick to your stomach. 3. You may have a bloated, gaseous feeling in your belly (abdomen) after a colonoscopy. Passing gas and belching will help. Walking or lying down on your left side with your knees flexed may relieve the discomfort. Call the office at [phone] (Office) or [phone] (Hospital) right away if you notice any of the following: a.Vomiting of blood or ?coffee ground stools?. b.Rectal bleeding 1Tbsp, blood clots or continuous bleeding. c.Severe belly (abdominal) pain. d.A hard distended belly (abdomen) and an inability to pass gas. 4. Please don?t expect to have a normal BM (bowel movement) for 2-3 days after your procedure. 5. If there are questions regarding the findings of your procedure, please contact your doctor 6. If you are unable to contact your doctor with a problem, contact the hospital at [phone]. 7. Continue all your regular medications unless directed otherwise. I understand the above instructions and have no questions. Signature of Patient or Adult Escort Name of Responsible Adult Escort Signature of Nurse Date/Time Stand Alone Forms: Anesthesia Discharge Inst., Yasmine Bernabe (DSU) Activity:: See above Diet:: See above Discharge Orders Discharge Orders: Discharge Order (Routine); Ordered 07/30/21 Ordered By: Mary Levy
--- NOTE | 2021-07-30 14:15 | W.COLOREPORT ---
Colonoscopy Report Date of procedure: 07/31/21 Pre-op diagnosis general: CRC screen Post-op diagnosis procedure note: same Surgeon: Mary Levy Anesthesia Type: General:No Airway Estimated blood loss (mL): 0 Pathology: none sent Complications: None Disposition: same day Prep: Miralax/Dulcolax Retraction Time: 15 Procedure Description: After informed consent was obtained the patient was taken to the procedure room and placed in a left decubitous position. Monitors were applied and a time out was done. The patients name, date of , procedure, allergies to medications and metal in their body was reviewed. The patient was then sedated. Once sedated and comfortable a rectal exam was done. External exam was normal. Internal exam revealed a normal sphincter tone and no palpable masses. The scope was then introduced and retrofelexed. No internal hemorrhoids were identified. The scope was then advanced to the cecum w/out difficulty. She does have a very tortuous colon. The TI and appendiceal orifice were identified. The prep was was a BB PS 2 to in a right colon and transverse colon. And it was a BB PS 1 in the rectosigmoid colon, for a total of 5.. the prep was very incomplete. the colon was irrigated with 2.5 L of saline. There was a lots of vegetative matter that Clogging the scope. Polyps less than 5 mm may have been missed. Otherwise there are no diverticula, polyps, or AVMs. The mucosa is pink and healthy with a normal vascular pattern. Scope was then slowly retracted over 15 minutes back into the rectum. No polyps, AVMs, or diverticula are visualized today. The scope was removed and the patient was woken up and taken back to Same day surgery in stable condition. The patient tolerated the procedure well and there were no immediate complications. Follow up: The patient should follow up in 5 years (Because of the incomplete prep), unless they develop changes in bowel habits or other new gastrointestinal complaints.
[2021-07-31 08:20] VITALS: BP 130/81; PULSE 94; RESP 18; TEMP 36.7; O2SAT 97
[2021-07-31] MEDS: Lactated Ringers 1,000 ML 80 ML IV (08:41)
--- NOTE | 2021-07-31 08:41 | W.ANESPRE ---
General Info Date of Service Date Performed: 07/31/21 Height: 5 ft Weight: 67.6 kg Body Mass Index (BMI): 29.0 Surgical Procedure: Operation Date: 07/31/21 09:05 Proposed Procedure Side Surgeon nohemi Levy DO Meds Allergies and Home Medications Allergies Allergy/AdvReac Type Severity Reaction Status Date / Time No Known Allergies Allergy Unverified 07/17/21 10:28 Home Medication Medication Instructions Recorded aspirin 81 mg chewable tablet 81 mg PO DAILY 03/11/18 vitamin d with calcium 400 mg PO BID 01/05/21 Current Visit Medications: Current Medications Generic Name Dose Route Start Last Admin Trade Name Freq PRN Reason Stop Dose Admin Hyoscyamine Sulfate 0.125 mg 07/30/21 14:14 Hyoscyamine 0.125 Mg Sl/Oral/Chew SL DIRECTED PRN Ringer's Solution 1,000 mls @ 80 mls/hr 07/31/21 06:00 IV 08/01/21 23:59 INFUSION PENDING SALE TO [facility] IV Miscellaneous Supplies 1 each 07/31/21 06:00 Iv Access IV 08/01/21 23:59 DIRECTED STANISLAV Ondansetron HCl 4 mg 07/30/21 14:14 Ondansetron 4 Mg/2 Ml Vial IVP Q4H PRN PRN Nausea / Vomiting Sodium Chloride 0 ml 07/31/21 06:00 Normal Saline Flush 10 Ml Syr IV 08/01/21 23:59 PRN PRN Sodium Chloride 0 ml 07/31/21 06:00 Normal Saline 10 Ml Vial IJ 08/01/21 23:59 DIRECTED PRN Sterile Water 0 ml 07/31/21 06:00 Water,Injection,Sterile 10 Ml Vial IJ 08/01/21 23:59 DIRECTED PRN PFSH Active Problems Active Problems: Problem Status Onset Code Encounter for examination following surgery Z09 Vaginitis N76.0 Tinea corporis B35.4 Lesion of hard palate K13.79 Tobacco use Z72.0 Prolapse, uterovaginal N81.4 Medical History Medical History Abnormal finding on lung imaging Raquel-menopausal Surgical History Surgical History History of laparoscopic-assisted vaginal hysterectomy (~01/15/21) Hx of bilateral salpingo-oophorectomy (~01/15/21) Tobacco Smoking/Tobacco Use Status: Current every day Tobacco Type: cigarettes Smoking cigarettes per day: 6 Alcohol Alcohol Intake: current Alcohol intake frequency: a few times a week Alcohol type: hard liquor Details: Pt denies that ETOH has ever been a problem Substance Use Substance use: Socially Substance use type: marijuana Details: Pt reports not having used cannibas in over a week. Prental History History 3 Para Hx # Term Pregnancies 3 Multiple births Hx # Pregnancies Ectopic pregnancies AB induced Hx Number of Living Children AB spontaneous Vital Signs and Lab Results Vital Signs Most Recent Vital Signs in EMR: Most Recent Vital Signs Temp Pulse Resp BP Pulse Ox 36.7 C 94 H 18 130/81 97 07/31/21 08:20 07/31/21 08:20 07/31/21 08:20 07/31/21 08:20 07/31/21 08:20 Lab Results Blood Type / Crossmatch: No Data to Display Complete Blood Count: No Data to Display Complete Metabolic Panel: No Data to Display Liver Function Panel: No Data to Display Coagulation Panel: No Data to Display Cardiac Panel: No Data to Display Arterial Blood Gas: No Data to Display Venous Blood Gas: No Data to Display Pancreas Panel: No Data to Display Thyroid Panel: No Data to Display Infectious Disease: No Data to Display Blood Cultures: No Data to Display Toxicology Panel: No Data to Display Anesthesia Assessment and Plan Anesthesia History Personal History: No History of Anesthesia Complications Family History: No Family History of Anesthesia Complications Exercise Tolerance Exercise Tolerance: Metabolic Equivalents>4 Pertinent Negatives Pertinent Negatives: No Symptoms of GERD Cardiac & Pulmonary Exam Cardiac Exam: Normal S1/S2 Heart Sounds Pulmonary Exam: Clear Bilateral Breath Sounds Implantable Cardiac Device Does patient have a Pacemaker or an ICD?: No Airway Exam Known Difficult Airway: No Mallampati Class: 2 Mouth Opening: Normal (> 3cm) Thyromental Distance: Greater than 3 cm Neck Range of Motion: Full ROM Neck Circumference: Normal Teeth Condition: Removable Dentures/Plates Upper ASA Classification ASA Score: ASA 2 Emergency Case?: No NPO Status NPO Status: NPO Clears >2 hours, Solids >8 hours Anesthesia Plan Resuscitation Status: Full Code Anesthesia Technique: General Anesthesia Airway Planned: Natural Airway Monitors Used: Standard Monitors
[2021-07-31 09:10] VITALS: BMI 29.0
[2021-07-31 09:56] VITALS: BP 110/91; PULSE 74; RESP 15; TEMP 36; O2SAT 99
--- NOTE | 2021-07-31 10:01 | W.ANESPOSTOP ---
Postoperative Evaluation Date, Time and Location Date Performed: 07/31/21 Time Performed: 10:01 Patient Location: Day Surgery Unit Vital Signs Most Recent Imported Vital Signs: Most Recent Vital Signs Temp Pulse Resp BP Pulse Ox 36.7 C 94 H 18 130/81 97 07/31/21 08:20 07/31/21 08:20 07/31/21 08:20 07/31/21 08:20 07/31/21 08:20 Most Recent Manually Entered Vital Signs: Adult Blood Pressure: 110/91 Heart Rate: 74 Respirations: 15 Oxygen Saturation (%): 99 Temperature (C): 36 C Pain Score (0-10 Scale): 0 Pain Score Most Recent Pain Score: Most Recent Pain Score Pain Level 0 07/31/21 08:20 Assessment Mental Status: Awake (Alert & Oriented to Patient Baseline) Airway and Respiratory Function: Patent airway with normal (patient baseline) respiratory exam Cardiovascular Function: Hemodynamically Stable Hydration Status: Adequately Hydrated Nausea & Vomiting: No Nausea or Vomiting Pain: Pt. Denies Any Pain Peripheral Nerve Block: Patient did not receive a nerve block
[2021-07-31 10:03] VITALS: BP 110/91; PULSE 74; RESP 15; TEMPC 36; O2SAT 99
[2021-07-31 10:20] VITALS: BP 114/71; PULSE 64; RESP 16; TEMP 36.2; O2SAT 99
== END 2021-07-31 11:02 | disposition home or self-care (01) ==
PROVIDERS: PCP Nurse Practitioner Family; Visit Provider Surgery
PROC: 0DJD8ZZ Inspection of Lower Intestinal Tract, Via Natural or Artificial Opening Endoscopic (ICD-10-PCS; CPT 45378; principal; 2021-07-31 09:00)
DX: Z12.11 Encounter for screening for malignant neoplasm of colon (principal); F17.210 Nicotine dependence, cigarettes, uncomplicated
CPT/HCPCS: 45378

== ENCOUNTER 2022-04-30 09:22 | Outpatient (REF) | payer BC, MEDICAID, SELFPAY ==
[2022-04-30 19:39] LABS: Glucose 92 mg/dL (74-106)
[2022-04-30 20:26] LABS: Calculated LDL 138 mg/dL (<100); Cholesterol 225 mg/dL (<200); HDL Cholesterol 76 mg/dL (40-60); Triglyceride 56 mg/dL (<150)
== END 2022-04-30 09:23 | disposition home or self-care (01) ==
LOC: NCHCN 09:22
PROVIDERS: PCP Nurse Practitioner Family; Visit Provider Nurse Practitioner Family
DX: Z00.00 Encounter for general adult medical examination without abnormal findings (principal)
CPT/HCPCS: 80061; 82947

== ENCOUNTER 2022-06-04 00:17 | Outpatient (CLI) | payer BC, MEDICAID, SELFPAY ==
--- NOTE | 2022-06-04 | DI.DEXA_ITS ---
Exam(s) XR DEXA BONE DENSITY W/WO ESTRELLA EXAM: XR DEXA BONE DENSITY W/WO ESTRELLA CLINICAL HISTORY: SCREENING FOR OSTEOPOROSIS, Z13.820 TECHNIQUE: Routine DEXA evaluation of the lumbar spine, hip, or forearm. COMPARISON: No exams were available for comparison FINDINGS: Performed on a Hologic unit. Lateral image: No compression fracture evident. Lumbar Spine total T-score: 3.1 Hip total T-score:-0.4 Independent reading at the level of the femoral neck yields T-score of -0.9 Forearm total T-score: -1.1 IMPRESSION: Bone mineral density measures in the normal range for spine and hip. Measures mildly into the osteop enia range for the forearm bones. Fracture risk is low-moderate Note: Any spine fracture indicates 5x risk for subsequent spine fracture and 2x risk for subsequent h ip fracture. World Health Organization criteria for BMD interpretation classify patients: Normal...... T- Score at or above -1.0 Osteopenic... T- Score between -1.0 and -2.5 Osteoporosis... T-Score at or below -2.5
--- NOTE | 2022-06-04 | DI.MAMMO_ITS ---
Exam(s) MAMMO SCREENING EXAM: MAMMO SCREENING CLINICAL HISTORY: SCREENING, Z12.39. TECHNIQUE: Bilateral full field digital CC and MLO mammographic images were obtained with 3D tomosyn thesis and utilizing computer aided detection (CAD). COMPARISON: Prior mammograms were reviewed. FINDINGS: There has been no significant change in the appearance and distribution of the fibroglandular tissue. Nodular densities in the left breast are unchanged from prior studies. There are no new spiculated masses nor malignant appearing microcalcification groups. There is no significant architectural distortion nor skin thickening-retraction. IMPRESSION: Stable benign findings. No radiographic evidence of malignancy. BI-RADS Category 2 - Benign Findings Breast Density - Category B - Scattered areas of fibroglandular density Breast density Category C or D implies that the patient has dense breast tissue. Dense breast tissue can make it harder to find cancer on a mammogram. Dense breast tissue is also associated with an incr eased risk of breast cancer. This information about the result of the mammogram report was provided to the patient to raise their awareness. Use this report when you speak with the patient about their risks for breast cancer, which includes their family history. At that time, you may recommend additional screening tests (Ultrasoun d or MRI) as these tests may add significant information. A negative radiographic report should not delay biopsy if a dominant or clinically suspicious mass is present. Up to ten percent of cancers are not identified on mammography. A negative report may reinforce clinical impression. Adenosis and dense breasts may obscure an underlying neoplasm. False positive reports average 6 to 10%. Patient will receive a letter notifying them of these results.
--- NOTE | 2022-06-04 14:15 | DI.CTLCSR_ITS ---
Exam(s) CT CHEST LUNG CANCER SCREEN EXAM: CT CHEST LUNG CANCER SCREEN CLINICAL HISTORY: SCREENING FOR LUNG CA,SMOKER, F17.210. TECHNIQUE: Imaging Protocol: Low Dose Technique CONTRAST MATERIAL: None COMPARISON: CT CT CHEST LUNG CANCER SCREEN from 05/07/[address] CHEST LUNG CANCER SCREEN from 07/25/2020 FINDINGS: CHEST: LUNGS: The previously described ground-glass infiltrate in the right upper lobe exhibits minimal if a ny significant change, measuring approximately [address] scans May 2019 (3 years) and July 2020. Chronic benign-appearing increased markings in the basal segments of both lower lobes again noted. No new nodular infiltrates. No pleural effusions. No new findings in the trachea and mainstem bronchi. MEDIASTINUM: There is no obvious hilar nor mediastinal adenopathy. CARDIAC: Heart size is normal. There is no pericardial effusion.Caliber of the thoracic aorta is wit hin normal limits. OTHER: Benign-appearing hypodensity in the liver again noted probably hemangioma or cyst measuring ap proximately 6-7 millimeters. OSSEOUS: No significant osseous lesions.No fractures. IMPRESSION: 1. Continued stable appearance of the 1.5 cm ground-glass nodular infiltrate in the right upper lobe. This is now unchanged for 3 years (CT scan May 2019). No new additional lung findings. Uncha nged benign-appearing increased markings both lung bases. 2. No pleural effusions nor intrathoracic adenopathy. 3. Lung RADS Cat 2 - Benign Appearance / Behavior: Nodules with a very low likelihood of becoming a c linically active cancer due to size or lack of growth Lung-RADS 1.0 CATEGORIES: Category 0 - Prior chest CT exam(s) being located for comparison. Category 1 - Annual screening in 12 months. No nodules or definitely benign nodules. Category 2 - Annual screening in 12 months. Benign appearance. Nodules with low likelihood of becomin g active cancer. Category 3 - 6-month follow-up. Probably benign. Short-term follow-up suggested. Nodules with low lik elihood of becoming active cancer. Category 4A - 3-month follow-up and CT/PET if >8 mm in size. Suspicious finding. Findings which requi re additional testing. Category 4B - Findings which require additional testing and tissue sampling. Category 4X - Category 3 or 4 nodules with additional features or imaging findings that increases the suspicion of malignancy. Modifier S- Potentially clinically significant findings (non lung cancer) RADIATION DOSE DELIVERED: 70.68mGy.cm Total DLP DATA REPOSITORY: All CT scans at this facility are submitted to the National Radiology Data Registry (NRDR) Dose Index Registry (DIR) with the [employer] ([employer]). RADIATION OPTIMIZATION: All CT scans at this facility use at least one of these dose optimization te chniques: automated exposure control; mA and/or kV adjustment per patient size (includes targeted exa ms where dose is matched to clinical indication); or iterative reconstruction.
== END 2022-06-04 00:37 ==
LOC: DI 00:18
PROVIDERS: PCP Nurse Practitioner Family; Visit Provider Nurse Practitioner Family
DX: Z12.2 Encounter for screening for malignant neoplasm of respiratory organs (principal); Z12.31 Encounter for screening mammogram for malignant neoplasm of breast; M85.88 Other specified disorders of bone density and structure, other site; F17.210 Nicotine dependence, cigarettes, uncomplicated; R91.8 Other nonspecific abnormal finding of lung field; J98.4 Other disorders of lung
CPT/HCPCS: 71271; 77063; 77067; 77080

== ENCOUNTER 2024-05-04 01:05 | Outpatient (CLI) | payer BC, SELFPAY ==
[2024-05-04] MEDS: Levalbuterol HFA 15 GM INH 4 PUFF IH (11:14)
[2024-05-04] MEDS: Inhaler, Assist Device 1 EACH MC (11:14)
--- NOTE | 2024-05-08 16:10 | W.PFT ---
Date of service: 05/04/24 Time of Service: 10:05 Pulmonary Function Test Result Indications: COPD Interpretation Spirometry: No airflow limitation. No bronchodilator response. Lung Volumes: Hyperinflation and air trapping Diffusion Capacity: Normal diffusion Airway Pressure: Normal airways resistance Impression There is air trapping Clinical Correlation therefore is recommended.
== END 2024-05-04 01:06 | disposition home or self-care (01) ==
LOC: RT 01:05
PROVIDERS: PCP Nurse Practitioner Family; Visit Provider Student in an Organized Health Care Education/Training Program
DX: J44.9 Chronic obstructive pulmonary disease, unspecified (principal)
CPT/HCPCS: 94060; 94726; 94729

== ENCOUNTER 2024-12-21 14:49 | Outpatient (REF) | payer BC, SELFPAY ==
[2024-12-21 16:20] LABS: Abs Immature Grans 0.02 10^3/uL (0.0-0.06); HCT 37.1 % (36.0-46.0); HGB 12.1 g/dL (11.2-15.7); Immature Grans % 0.2 %; MCH 29.2 pg (27.0-33.0); MCHC 32.6 % (32.0-36.0); MCV 90 fL (80-95); MPV 8.5 fL (8.0-11.0); Platelet Count 373 10^3/uL (130-400); RBC 4.14 10^6/uL (3.93-5.22); RDW 14.9 % (11.7-14.6); RDW-SD 49.3 fL; WBC 8.33 10^3/uL (4.4-10.8)
[2024-12-21 16:49] LABS: Hemoglobin A1C 5.2 % (<5.7)
[2024-12-21 18:20] LABS: ALT 23 U/L (14-59); AST 12 U/L (15-37); Albumin 3.8 g/dL (3.4-5.0); Alkaline Phosphatase 67 U/L (46-116); Anion Gap 7.7 mmol/L (3-11); BUN 25 mg/dL (7-18); Bilirubin, Total 0.3 mg/dL (0.2-1.0); CO2 27.3 mmol/L (21.0-32.0); Calcium 9.5 mg/dL (8.5-10.1); Calculated LDL 126 mg/dL (<100); Chloride 103 mmol/L (98-107); Cholesterol 210 mg/dL (<200); Estimated GFR 94.15 (mL/min/1.73m2); Glucose 96 mg/dL (74-106); HDL Cholesterol 66 mg/dL (>or=50); Potassium 4.3 mmol/L (3.5-5.1); Sodium 138 mmol/L (136-145); Total Protein 6.9 g/dL (6.4-8.2); Triglyceride 93 mg/dL (<150)
[2024-12-24 13:12] LABS: Hepatitis C Ab w Rflx HCV PCR Negative (Negative)
== END 2024-12-21 14:50 | disposition home or self-care (01) ==
LOC: NCHCN 14:49
PROVIDERS: PCP Nurse Practitioner Family; Visit Provider Nurse Practitioner Family
DX: Z00.00 Encounter for general adult medical examination without abnormal findings (principal)
CPT/HCPCS: 80053; 80061; 86803; 83036; 85025